=== PATIENT | female | born 1935 | race Asian ===

== ENCOUNTER 2016-09-11 12:34 | Inpatient (IN) | payer OTHER ==
[~2016-09-11] VITALS: Ht 147.3 cm; Wt 63.0 kg
--- NOTE | 2016-09-11 12:34 | NUR ---
Patient [facility], triaged by RN and evaluated by Dr. Cho. Waiting for an available bed.
[2016-09-11 12:40] VITALS: BP 145/56
[2016-09-11] MEDS ORDERED: NACL 0.9% 1,000 ML IV SCH (12:42)
[2016-09-11] MEDS ORDERED: ONDANSETRON 4 MG/2 ML VIAL IVP ONE (12:45)
--- NOTE | 2016-09-11 12:46 | NUR ---
Patient transferred to bed 5. RN evaluating patient at bedside.
--- NOTE | 2016-09-11 12:50 | NUR ---
81 YO FEMALE BIB EMS FROM HOME FOR G TUBE MALFUNCTION IT WON'T FLUSH. HX OF G TUBE IN PLACE, OSTEOPOROSIS, STIFFNESS D/T IMMOBILITY,HTN. GRANDSON DENIES PT HAS N/V/D; SKIN IS PINK/WARM/DRY; PT ACT NEUROLOGICALLY BASELINE. LUNGS CLEAR BL; HR EVEN AND REGULAR; GRANDSON DENIES PT HAS ANY FEVER, CP, SOB, OR COUGH AT THIS TIME; PAIN OF 0/10 AT THIS TIME; VSS; PATIENT POSITIONED FOR COMFORT; HOB ELEVATED; BEDRAILS UP X2; BED DOWN. ER MD MADE AWARE OF PT STATUS.
[2016-09-11 13:01] LABS: BASOPHILS # (AUTO) 0.2 K/uL (0.00-0.22); BASOPHILS % (AUTO) 2.2 % (0.0-2.0); EOSINOPHILS # (AUTO) 0.1 K/uL (0-0.4); EOSINOPHILS % (AUTO) 1.2 % (0.0-4.0); HEMATOCRIT 33.3 % (36-48); HEMOGLOBIN 11.1 g/dL (12.0-16.0); LYMPHOCYTES # (AUTO) 2.2 K/uL (2.5-16.5); LYMPHOCYTES % (AUTO) 23.6 % (20.5-51.1); MEAN CORPUSCULAR HEMOGLOBIN 30 pg (27-31); MEAN CORPUSCULAR HGB CONC 33 g/dL (33-37); MEAN CORPUSCULAR VOLUME 91 fL (80-94); MONOCYTES # (AUTO) 0.6 K/uL (0.8-1.0); MONOCYTES % (AUTO) 6.8 % (1.7-9.3); NEUTROPHILS # (AUTO) 6.1 K/uL (1.8-7.7); NEUTROPHILS % (AUTO) 66.2 % (42.2-75.2); PLATELET COUNT (AUTO) 310 K/uL (140-450); RED BLOOD CELL COUNT(AUTO) 3.68 MIL/uL (4.20-5.40); RED CELL DISTRIBUTION WIDTH 12.6 % (11.6-13.7); WHITE BLOOD COUNT (AUTO) 9.2 K/uL (4.8-10.8)
[2016-09-11 13:17] LABS: ANION GAP 12.1 (8-16); CALCIUM 8.3 mg/dL (8.5-10.1); CARBON DIOXIDE 27.5 mmol/L (21-32); CHLORIDE 101 mmol/L (98-107); CREATININE 0.6 mg/dL (0.6-1.3); GLUCOSE 103 mg/dL (74-106); POTASSIUM 4.6 mmol/L (3.5-5.1); SODIUM SERUM 136 mmol/L (136-145); UREA NITROGEN, BLOOD 16 mg/dL (7-18)
[2016-09-11 13:23] LABS: ALANINE AMINOTRANSFERASE 13 U/L (14-59); ALKALINE PHOSPHATASE 85 U/L (46-116); AMYLASE 43 U/L (25-115); ASPARTATE AMINOTRANSFERASE 11 U/L (15-37); LIPASE 194 U/L (73-393); TOTAL BILIRUBIN 0.4 mg/dL (0.0-1.0); TOTAL PROTEIN, SERUM 7.3 g/dL (6.4-8.2)
[2016-09-11] MEDS ORDERED: LEVE1000 GT (13:28)
[2016-09-11] MEDS ORDERED: OSC500 GT (13:28)
[2016-09-11] MEDS ORDERED: ESOM20EC GT (13:28)
[2016-09-11] MEDS ORDERED: [UNRECOGNIZED DRUG - CODE] NS (13:28)
[2016-09-11] MEDS ORDERED: CALC-1380 GT (13:28)
[2016-09-11] MEDS ORDERED: LACT10SO11 GT (13:28)
[2016-09-11] MEDS ORDERED: ROBDM GT (13:28)
[2016-09-11] MEDS ORDERED: MONT10TA35 GT (13:28)
[2016-09-11] MEDS ORDERED: COLL30OI TP (13:28)
[2016-09-11] MEDS ORDERED: [UNRECOGNIZED DRUG - CODE] GT (13:28)
[2016-09-11] MEDS ORDERED: GAROS OP (13:28)
[2016-09-11] MEDS ORDERED: SIMV20TA1 GT (13:28)
[2016-09-11] MEDS ORDERED: [UNRECOGNIZED DRUG - CODE] GT (13:28)
[2016-09-11] MEDS ORDERED: ALEN35TA30 GT (13:28)
[2016-09-11] MEDS ORDERED: LISI2.5T12 GT (13:28)
[2016-09-11] MEDS ORDERED: SYN.05 GT (13:28)
[2016-09-11] MEDS ORDERED: OMEP20TC5 GT (13:28)
--- NOTE | 2016-09-11 13:44 | NUR ---
Patient appears to be resting comfortably in bed.NADR AT THIS TIME 151/62, MD AWARE. Respirations even and unlabored.WILL CONTINUE TO MONITOR.
--- NOTE | 2016-09-11 13:45 | NUR ---
X RAY AT BEDSIDE
--- NOTE | 2016-09-11 14:34 | NUR ---
Magy kowalski in ED - 09/11/16 at 1434 by MED1 Patient appears to be resting comfortably in bed. Vital Signs within normal limits. Respirations even and unlabored.
--- NOTE | 2016-09-11 14:34 | NUR ---
Patient appears to be resting comfortably in bed. BP 162/75, MD AWARE.. Respirations even and unlabored.
[2016-09-11] MEDS ORDERED: HYDROcodone/APAP 7.5/325 MG 1 TAB PO PRN (14:35)
[2016-09-11] MEDS ORDERED: ONDANSETRON 4 MG/2 ML VIAL IM/IVP PRN (14:35)
[2016-09-11] MEDS ORDERED: DOCUSATE SODIUM 100 MG GELCAP PO PRN (14:35)
[2016-09-11] MEDS ORDERED: MORPHINE SULFATE 2 MG/ML SYR IVP PRN (14:35)
[2016-09-11] MEDS ORDERED: ACETAMINOPHEN 325 MG TAB PO PRN (14:35)
--- NOTE | 2016-09-11 15:09 | NUR ---
Patient will be admitted to care of DR PADILLA. Admited to TELE. Will go to [id number]. Belongings list completed. Report to SURESH WOODRUFF.
--- NOTE | 2016-09-11 15:10 | NUR ---
RECEIVED REPORT FROM THE REGISTRATION SPECIALIST. WILL GET ROOM READY.
--- NOTE | 2016-09-11 15:20 | NUR ---
PT ARRIVED ON THE UNIT WITH 2 ER NURSES. PT HAS HER EYES CLOSED. CONTRACTURE IN BUE. NONE IN THE BLE. PT IS APHASIC. PER GRANDSON, SHE OPENS HER EYES ONCE IN A WHILE BUT DOESN'T SEEM TO UNDERSTAND OR ACKNOWLEDGE. PT IS BEDBOUND.SKIN IS INTACT, EXCEPT FOR THE G-TUBE REMOVAL. OPEN STOMA COVERED IN DRESSING. IV ON THE R HAND 22G SL. ADMINISTERED TELE MONITOR. MRSA SCREENING DONE. SHE IS NPO EXCEPT MEDS. WE WILL KEEP HER NPO AND NEW GTUBE PLACEMENT TOMORROW. NO SIGNS OF DISTRESS. VANNESSA GAVE DETAILED MED HX. V/S WITHIN NORMAL RANGE. WILL CONTINUE THE ADMISSION PROCESS. Addendum: 09/11/16 at 1837 by Cathy Jones RN SMALL WHITE SPOT ON HER SACRAL AREA. NOT OPEN. WILL PUT IN TURN PT Q 2HRS.
[2016-09-11 15:25] LABS: PROTHROMBIN TIME 10.4 secs (10.8-13.4)
[2016-09-11 15:34] LABS: CHOL/HDL RATIO 2.3 (1-4.5); FREE T4 (FREE THYROXINE) 1.18 ng/dL (0.76-1.46); MAGNESIUM 2.3 mg/dL (1.8-2.4); THYROID STIMULATING HORMONE 0.52 uIU/mL (0.34-3.74)
[2016-09-11 15:36] LABS: APPEARANCE,URINE CLEAR (CLEAR); BILIRUBIN,URINE NEGATIVE (NEGATIVE); BLOOD, URINE TRACE-L (NEGATIVE); COLOR,URINE YELLOW (YELLOW); LEUKOCYTE ESTERASE ,URINE NEGATIVE (NEGATIVE); NITRITE, URINE NEGATIVE (NEGATIVE); PROTEIN,URINE NEGATIVE (NEGATIVE); UGLUCOSE NEGATIVE (NEGATIVE); UROBILINOGEN,URINE 0.2 EU/dL (0.2 - 1)
[2016-09-11 15:42] LABS: BACTERIA,URINE RARE /HPF (None Seen); WBC,URINE 0-3 /HPF (0-5)
[2016-09-11 15:56] VITALS: BP 151/72
[2016-09-11 16:27] LABS: CHOL/HDL RATIO 2.4 (1-4.5)
--- NOTE | 2016-09-11 16:53 | NUR ---
PT RESTING COMFORTABLY. GRANDSON GONE. WILL CONTINUE TO MONITOR PT. DR BROWN STOPPED. R/T WAS HERE, GOT AN EKG. PT TOLERATED WELL.
[2016-09-11] MEDS ORDERED: LEVOFLOXACIN 500 MG/D5W PREMIX 100 ML IV SCH (18:00)
--- NOTE | 2016-09-11 18:00 | NUR ---
DISCUSSED W/ PT'S GRANDSON, ONLY FAMILY HERE RE NG TUBE. HE WOULD LIKE TO WAIT FOR THE G TUBE PLACEMENT TOMORROW. HE WILL DISCUSS IT AGAIN WITH HIS MOM WHEN SHE COMES TONIGHT BUT WOULD LIKE HOLD OFF. WILL ENDORSE ORDER TO THE SADDLE TREE STITCHER IF THE FAMILY CHANGES MIND.
[2016-09-11] MEDS: NACL 0.9% 1,000 ML IV SCH (18:16)
--- NOTE | 2016-09-11 18:34 | NUR ---
ADMINISTERED IV NS AT 90ML/HR, STARTED THE LEVAQUIN. NO CLEOCIN PREMIX OR THE VIAL. CALLED AIRCRAFT MOTOR MECHANIC. HE WILL BRING ONE SO WE CAN MIX IT AND GIVE. WILL AWAIT FOR ARRIVAL.
[2016-09-11] MEDS ORDERED: CLINDAMYCIN 600 MG/4 ML VIAL ONE (18:44)
[2016-09-11] MEDS ORDERED: DEXTROSE 50% 50 ML SYR IVP PRN (18:45)
[2016-09-11] MEDS ORDERED: INSULIN LISPRO SLIDING SCALE 100 UNITS/ML VIAL SUBQ PRN (18:50)
[2016-09-11] MEDS: DOCUSATE SODIUM 100 MG GELCAP PO SCH (19:00)
[2016-09-11] MEDS ORDERED: CALCIUM CARB/VIT-D 500 MG/200 IU 1 TAB PO SCH (19:00)
[2016-09-11] MEDS ORDERED: ALENDRONATE 10 MG TAB PO SCH (19:00)
[2016-09-11] MEDS: SIMVASTATIN 20 MG TAB PO SCH ×2 (19:00→20:29)
[2016-09-11] MEDS: LACTOBACILLUS RHAMNOSUS GG 1 EACH CAP PO SCH (19:00)
[2016-09-11] MEDS: MONTELUKAST SODIUM 10 MG TAB PO SCH (19:00)
[2016-09-11] MEDS: LISINOPRIL 5 MG TAB PO SCH (19:00)
[2016-09-11] MEDS: FLUTICASONE NASAL 50 MCG/ACTUATION 16 GM BTL NS SCH (19:00)
[2016-09-11] MEDS: LEVOTHYROXINE 0.05 MG TAB PO SCH (19:00)
[2016-09-11] MEDS: CLINDAMYCIN 600 MG in DEXTROSE 5% 50 ML IV SCH (19:18)
--- NOTE | 2016-09-11 19:20 | NUR ---
ENDORSED PT TO THE STORAGE BATTERY INSPECTOR AND TESTER NURSE FOR CONTINUITY OF CARE. PT IS RESTING WITH FAMILY AT BEDSIDE. PT IS IN STABLE CONDITION. FINISHED SCOTT YAO. PT TOLERATING WELL.
--- NOTE | 2016-09-11 19:25 | NUR ---
RECEIVED REPORTS FROM DAY RN. PATIENT RESTING IN BED AND FAMILY MEMBERS AT BEDSIDE. PATIENT APHASIC AND DID NOT OPEN HER EYES WHEN TAPPING ON HER SHOULDERS. NO S/S OF ACUTE DISTRESS NOTED. IV PATENT AND INTACT, INFUSING CLEOCIN AT 100ML/HR. DRESSING ON G-TUBE SITE CLEAN AND DRY. CARE PLAN DISCUSSED WITH PATIENT'S DAUGHTER AND GRANDSON, VERBALIZED UNDERSTANDING. BED ALARM ON, AND FALL PRECAUTION MAINTAINED PER HOSPITAL POLICY, CALL LIGHT WITHIN REACH, SAFETY MEASURE ENSURED, WILL CONTINUE TO MONITOR.
[2016-09-11 20:00] VITALS: BP 163/72
[2016-09-11] MEDS: BLOOD GLUCOSE MONITORING 1 DEV DEV FS SCH (20:25)
--- NOTE | 2016-09-11 20:30 | NUR ---
ZOCOR NON-ADMINISTER DUE TO G-TUBE MALFUNCTION. PER DAY SHIFT RN, G-TUBE WAS REMOVED IN ER AND PATIENT'S DAUGHTER AND GRANDSON DID NOT WANT PO MEDICATIONS TO BE ADMINISTERED AT THIS TIME. PATIENT FAMILY MEMBERS ARE OKAY WITH ADMINISTERING IV MEDICATIONS.
[2016-09-12] VITALS: BP 149/58
[2016-09-12] MEDS ORDERED: CLINDAMYCIN 600 MG/4 ML VIAL ONE ×2 (00:05→05:16)
[2016-09-12] MEDS: CLINDAMYCIN 600 MG in DEXTROSE 5% 50 ML IV SCH ×3 (00:06→12:10)
--- NOTE | 2016-09-12 00:12 | NUR ---
CLEOCIN STARTED, PATIENT TOLERATED WELL. REPOSITIONED PATIENT. PATIENT'S DAUGHTER STATED FLAG CAR DRIVER REPOSITIONED PATIENT AROUND 1030. DRESSING ON G-TUBE CLEAN AND INTACT. EDUCATED PATIENT'S DAUGHTER ABOUT CLEOCIN, VERBALIZED UNDERSTANDING. SAFETY MEASURE ENSURED, WILL CONTINUE TO MONITOR.
[2016-09-12] MEDS: NACL 0.9% 1,000 ML IV SCH ×3 (01:41→23:55)
--- NOTE | 2016-09-12 02:13 | NUR ---
PATIENT RESPIRATION EVEN AND UNLABORED, NO S/S OF ACUTE DISTRESS NOTED, POWER PLANT SUPERVISOR WAS IN THE ROOM REPOSITIONED THE PATIENT. WILL CONTINUE TO MONITOR
[2016-09-12 04:00] VITALS: BP 115/52
--- NOTE | 2016-09-12 04:15 | NUR ---
HELPED ENVIRONMENTAL RESEARCH SCIENTIST REPOSITIONED THE PATIENT, NO S/S OF ACUTE DISTRESS NOTED, CALL LIGHT WITHIN REACH, WILL CONTINUE TO MONITOR
[2016-09-12 05:50] LABS: BASOPHILS # (AUTO) 0.1 K/uL (0.00-0.22); BASOPHILS % (AUTO) 1.4 % (0.0-2.0); EOSINOPHILS # (AUTO) 0.1 K/uL (0-0.4); EOSINOPHILS % (AUTO) 1.9 % (0.0-4.0); HEMATOCRIT 31.3 % (36-48); HEMOGLOBIN 10.2 g/dL (12.0-16.0); LYMPHOCYTES # (AUTO) 1.7 K/uL (2.5-16.5); LYMPHOCYTES % (AUTO) 29.9 % (20.5-51.1); MEAN CORPUSCULAR HEMOGLOBIN 30 pg (27-31); MEAN CORPUSCULAR HGB CONC 33 g/dL (33-37); MEAN CORPUSCULAR VOLUME 93 fL (80-94); MONOCYTES # (AUTO) 0.4 K/uL (0.8-1.0); MONOCYTES % (AUTO) 7.2 % (1.7-9.3); NEUTROPHILS # (AUTO) 3.3 K/uL (1.8-7.7); NEUTROPHILS % (AUTO) 59.6 % (42.2-75.2); PLATELET COUNT (AUTO) 268 K/uL (140-450); RED BLOOD CELL COUNT(AUTO) 3.35 MIL/uL (4.20-5.40); RED CELL DISTRIBUTION WIDTH 12.4 % (11.6-13.7); WHITE BLOOD COUNT (AUTO) 5.6 K/uL (4.8-10.8)
[2016-09-12] MEDS: LEVOTHYROXINE 0.05 MG TAB PO SCH (06:20)
--- NOTE | 2016-09-12 06:21 | NUR ---
SYNTHROID NOT ADMINISTER DUE TO G-TUBE MALFUNCTION. PER DAY SHIFT RN, G-TUBE WAS REMOVED IN ER AND PATIENT'S DAUGHTER AND GRANDSON DID NOT WANT PO MEDICATIONS TO BE ADMINISTERED AT THIS TIME.
[2016-09-12] MEDS: BLOOD GLUCOSE MONITORING 1 DEV DEV FS SCH ×4 (06:52→21:03)
--- NOTE | 2016-09-12 07:15 | NUR ---
ENDORSED PLAN OF CARE TO DAY RN, PATIENT IS IN STABLE CONDITION.
--- NOTE | 2016-09-12 07:20 | NUR ---
RECEIVED REPORT FROM QUALITY ASSURANCE REPRESENTATIVE NURSE AT BEDSIDE. DAUGHTER AT BEDSIDE. PT IS APHASIC, AND AWAKE AT THIS TIME. PT HAS IV ON R HAND 22 G RUNNING NS@90. INTRODUCED MYSELF AND UPDATED THE BOARD. CALL LIGHT WITHIN REACH. WILL CONTINUE TO MONITOR.
[2016-09-12 08:00] VITALS: BP 160/60
--- NOTE | 2016-09-12 08:57 | NUR ---
FAXED INITIAL REVIEW TO [facility] [phone] PHONE CASSANDRA [phone]
[2016-09-12] MEDS: DOCUSATE SODIUM 100 MG GELCAP PO SCH (09:00)
[2016-09-12] MEDS: MONTELUKAST SODIUM 10 MG TAB PO SCH (09:00)
[2016-09-12] MEDS: LACTOBACILLUS RHAMNOSUS GG 1 EACH CAP PO SCH (09:00)
[2016-09-12] MEDS: CALCIUM CARBONATE 500 MG TAB PO SCH (09:00)
[2016-09-12] MEDS: LISINOPRIL 5 MG TAB PO SCH (09:00)
--- NOTE | 2016-09-12 09:00 | NUR ---
HELD ALL MEDS EXCEPT IV MED DUE TO ABSENCE OF G TUBE.
[2016-09-12] MEDS: PANTOPRAZOLE 40 MG INJ VIAL IVP SCH (09:26)
[2016-09-12] MEDS: FLUTICASONE NASAL 50 MCG/ACTUATION 16 GM BTL NS SCH (09:27)
--- NOTE | 2016-09-12 09:55 | NUR ---
PATIENT HAS BEEN SCREENED AND CATEGORIZED HIGH NUTRITION RISK. PATIENT WILL BE SEEN WITHIN 1-2 DAYS OF ADMISSION. 09/12/16-09/13/[address]
--- NOTE | 2016-09-12 10:00 | NUR ---
TALKED TO PHARM REGARDING PT'S ELEVATED BP OF 160/66, AND PT'S UNABLE TO TAKE BP MEDS DUE TO REMOVAL OF G-TUBE.
[2016-09-12 10:24] LABS: HEMOGLOBIN A1C 5.6 % (4.8-5.6); T4 (THYROXINE) 7.7 ug/dL (4.5-12.0)
[2016-09-12] MEDS ORDERED: hydrALAZINE 20 MG/ML VIAL IVP PRN (11:25)
--- NOTE | 2016-09-12 11:45 | NUR ---
TALKED TO DR. VÁZQUEZ REGARDING PT'S ELEVATED BP 184/61. DR WILL SEE PT.
[2016-09-12 12:00] VITALS: BP 184/61
--- NOTE | 2016-09-12 13:00 | NUR ---
CLEANED AND CHANGED AND REPOSITIONED PT. PT TOLERATED WELL. CALL LIGHT WITHIN REACH. WILL CONTINUE TO MONITOR.
--- NOTE | 2016-09-12 14:00 | NUR ---
G-TUBE INSERTED BY DR. Diamond LEÓN. PT TOLERATED WELL.
--- NOTE | 2016-09-12 14:55 | NUR ---
09/12/16 RD INITIAL ASSESSMENT COMPLETED PLEASE REFER TO NUTRITION ASSESSMENT UNDER CARE ACTIVITY FOR ESTIMATED NUTRITIONAL NEEDS. 1. WHEN MEDICALLY FEASIBLE, CONSIDER INITIATING EN SUPPORT - DIABETISOURCE TO START AT 30 MLS/HR AND ADVANCE 10 MLS Q8H TO GOAL RATE OF 55 MLS/HR (THIS WILL MEET 1584 KCAL, 81G OF PROTEIN, AND 1080 ML OF FREE WATER - MEETING 100% KCAL RRR224% PROTEIN ESTIMATED NEEDS) 2. RD TO FOLLOW-UP 2-3 DAYS; HIGH RISK JUAN ALBERTO DE [address] RD
--- NOTE | 2016-09-12 15:00 | NUR ---
PT IS RESTING COMFORTABLY IN BED. NO DISTRESS NOTED. CALL LIGHT WITHIN REACH. WILL CONTINUE TO MONITOR.
[2016-09-12 16:00] VITALS: BP 159/69
--- NOTE | 2016-09-12 17:30 | NUR ---
PT'S IV INFILTRATED. WILL PUT IN NEW IV. OLD IV REMOVED, CANNULA INTACT.
[2016-09-12] MEDS ORDERED: CLINDAMYCIN 150 MG CAP PO SCH (18:23)
--- NOTE | 2016-09-12 18:30 | NUR ---
IV INSERTION UNSUCCESSFUL. SPOKE TO . DR MEJÍA PUT ORDER FOR ANTIBIOTICS THRU G-TUBE.
--- NOTE | 2016-09-12 18:30 | NUR ---
ATTEMPTED CALLING THE GRANDSON TO INQUIRE TYPE OF G-TUBE FEEDING PT WAS ON. CALL NOT ANSWERED AT THIS TIME.
[2016-09-12] MEDS ORDERED: LEVOFLOXACIN 500 MG TAB PO SCH (19:00)
--- NOTE | 2016-09-12 19:37 | NUR ---
ENDORSED CARE OF PT TO FIELD AGRONOMIST NURSE AT BEDSIDE. PT IN STABLE CONDITION.
--- NOTE | 2016-09-12 19:38 | NUR ---
RECEIVED REPORT FROM AM NURSE. PT SEEN ON BED AWAKE, APHASIC. WITH GRANDSON AT BEDSIDE. WITH A G-TUBE IN PLACE, PATENT AND INTACT. DISCUSSED PLAN OF CARE WITH THE GRANDSON, VERBALIZED UNDERSTANDING. WILL CONTINUE TO MONITOR. CALL LIGHT WITHIN REACH. SAFETY CHECKS IN PLACE.
[2016-09-12 20:00] VITALS: BP 149/68
[2016-09-12] MEDS: SIMVASTATIN 20 MG TAB PO SCH (21:02)
[2016-09-13] VITALS: BP 141/55
--- NOTE | 2016-09-13 00:30 | NUR ---
VITAL SIGNS TAKEN, STABLE. DUE MEDS GIVEN THROUGH G TUBE. NO S/S OF DISTRESS. FLACC - 0. WILL CONTINUE TO MONITOR. CALL LIGHT WITHIN REACH.
[2016-09-13] MEDS: CLINDAMYCIN 150 MG CAP PO SCH ×4 (00:32→17:22)
--- NOTE | 2016-09-13 01:39 | NUR ---
INSERTED A NEW IV AT LEFT HAND 20 G AND RESTARTED IV FLUIDS. INFORMED MD AND SAID WILL CONTINUE WITH MEDICATION THROUGH G-TUBE.
[2016-09-13] MEDS: NACL 0.9% 1,000 ML IV SCH ×2 (01:48→06:12)
--- NOTE | 2016-09-13 02:38 | NUR ---
MADE ROUNDS, PT SEEN ON BED ASLEEP. NO S/S OF DISTRESS. WILL CONTINUE TO MONITOR. CALL LIGHT WITHIN REACH.
[2016-09-13 04:00] VITALS: BP 128/56
--- NOTE | 2016-09-13 04:30 | NUR ---
VITAL SIGNS STABLE. NO S/S OF DISTRESS. FLACC SCORE - 0. WILL CONTINUE TO MONITOR. CALL LIGHT WITHIN REACH. SAFETY CHECKS IN PLACE.
[2016-09-13] MEDS: LEVOTHYROXINE 0.05 MG TAB PO SCH (05:48)
[2016-09-13 05:50] LABS: BASOPHILS # (AUTO) 0.1 K/uL (0.00-0.22); BASOPHILS % (AUTO) 0.8 % (0.0-2.0); EOSINOPHILS # (AUTO) 0.1 K/uL (0-0.4); EOSINOPHILS % (AUTO) 1.4 % (0.0-4.0); HEMATOCRIT 33.1 % (36-48); HEMOGLOBIN 10.8 g/dL (12.0-16.0); LYMPHOCYTES # (AUTO) 1.5 K/uL (2.5-16.5); LYMPHOCYTES % (AUTO) 19.7 % (20.5-51.1); MEAN CORPUSCULAR HEMOGLOBIN 30 pg (27-31); MEAN CORPUSCULAR HGB CONC 33 g/dL (33-37); MEAN CORPUSCULAR VOLUME 92 fL (80-94); MONOCYTES # (AUTO) 0.6 K/uL (0.8-1.0); MONOCYTES % (AUTO) 8.5 % (1.7-9.3); NEUTROPHILS # (AUTO) 5.3 K/uL (1.8-7.7); NEUTROPHILS % (AUTO) 69.6 % (42.2-75.2); PLATELET COUNT (AUTO) 310 K/uL (140-450); RED BLOOD CELL COUNT(AUTO) 3.58 MIL/uL (4.20-5.40); RED CELL DISTRIBUTION WIDTH 12.5 % (11.6-13.7); WHITE BLOOD COUNT (AUTO) 7.6 K/uL (4.8-10.8)
[2016-09-13 06:05] LABS: ANION GAP 12.2 (8-16); CALCIUM 7.7 mg/dL (8.5-10.1); CARBON DIOXIDE 22.9 mmol/L (21-32); CHLORIDE 106 mmol/L (98-107); CREATININE 0.7 mg/dL (0.6-1.3); GLUCOSE 130 mg/dL (74-106); POTASSIUM 4.1 mmol/L (3.5-5.1); SODIUM SERUM 137 mmol/L (136-145); UREA NITROGEN, BLOOD 15 mg/dL (7-18)
[2016-09-13] MEDS: BLOOD GLUCOSE MONITORING 1 DEV DEV FS SCH ×3 (06:48→16:58)
--- NOTE | 2016-09-13 07:21 | NUR ---
ENDORSED TO AM SHIFT FOR CONTINUITY OF CARE. IN STABLE CONDITION.
--- NOTE | 2016-09-13 07:22 | NUR ---
RECEIVED PT FROM TELECOMMUNICATIONS FACILITY EXAMINER NURSE AT BEDSIDE. PT IS A&OX1. PT HAS IV ON L HAND 24 G RUNNING NS@90. PT HAS G-TUBE IN PLACE. NO DISTRESS NOTED. CALL LIGHT WITHIN REACH. WILL CONTINUE TO MONITOR.
[2016-09-13 08:00] VITALS: BP 153/69
[2016-09-13] MEDS: PANTOPRAZOLE 40 MG INJ VIAL IVP SCH (08:26)
[2016-09-13] MEDS: FLUTICASONE NASAL 50 MCG/ACTUATION 16 GM BTL NS SCH (08:26)
[2016-09-13] MEDS: MONTELUKAST SODIUM 10 MG TAB PO SCH (08:27)
[2016-09-13] MEDS: CALCIUM CARBONATE 500 MG TAB PO SCH (08:27)
[2016-09-13] MEDS: LACTOBACILLUS RHAMNOSUS GG 1 EACH CAP PO SCH (08:28)
[2016-09-13] MEDS: LISINOPRIL 5 MG TAB PO SCH (08:28)
[2016-09-13] MEDS ORDERED: DOCUSATE 100 MG/10 ML UDC PO PRN (08:48)
[2016-09-13] MEDS ORDERED: DOCUSATE 100 MG/10 ML UDC GT SCH (09:00)
--- NOTE | 2016-09-13 09:00 | NUR ---
ADMINISTERED MORNING MEDS THRU G-TUBE. PT TOLERATED WELL. CALL LIGHT WITHIN REACH. WILL CONTINUE TO MONITOR.
--- NOTE | 2016-09-13 09:32 | NUR ---
CALLED [facility] AND SPOKE WITH TREVIN. SHE CONFIRMED FAX [phone]. FAXED CONCURRENT REVIEW . PHONE [phone] BILLY [phone] TREVIN SAID FOR [facility] TRANSPORT HOME USE [facility] PHONE [phone] AUTH [id number].
--- NOTE | 2016-09-13 10:20 | NUR ---
STARTED G-TUBE FEEDING.
[2016-09-13 12:00] VITALS: BP 159/58
--- NOTE | 2016-09-13 12:05 | NUR ---
DISCUSSED DC PLAN WITH VANNESSA AT BEDSIDE. NO DISTRESS NOTED. CALL LIGHT WITHIN REACH. WILL CONTINUE TO MONITOR.
[2016-09-13] MEDS ORDERED: CLIN150C1 PO (13:47)
[2016-09-13] MEDS ORDERED: LEVO750T2 PO ×2 (13:47→16:41)
--- NOTE | 2016-09-13 14:00 | NUR ---
PT IS RESTING COMFORTABLY IN BED. RESIDUAL 25 ML. NO DISTRESS NOTED. CALL LIGHT WITHIN REACH. WILL CONTINUE TO MONITOR.
--- NOTE | 2016-09-13 14:05 | NUR ---
CALLED FOR [facility] TRANSPORT WITH [facility]. SPOKE WITH RUSLAN. PICKUP TIME WILL BE 6:30P.M. CONF. #[id number]. SURESH GUERRACANDLEMAKER NURSE INFORMED. [facility], .. AUTH NUMBER GIVEN [id number].
[2016-09-13 15:20] VITALS: BP 159/58
[2016-09-13 16:00] VITALS: BP 134/66
--- NOTE | 2016-09-13 16:30 | NUR ---
PT'S RESIDUAL IS 20ML. NO DISTRESS NOTED. CALL LIGHT WITHIN REACH. WILL CONTINUE TO MONITOR.
[2016-09-13] MEDS ORDERED: CLIN300C2 PO (16:41)
[2016-09-13] MEDS ORDERED: LACT1.4C PO (16:50)
[2016-09-13] MEDS ORDERED: LEVOFLOXACIN 500 MG TAB PO SCH (17:00)
--- NOTE | 2016-09-13 17:30 | NUR ---
PT'S GRANDSON SIGNED ALL APPROPRIATE DC PAPERWORK AND VERBALIZED UNDERSTANDING.
--- NOTE | 2016-09-13 19:20 | NUR ---
ACCOMPANIED BY VANNESSA, PT TRANSPORTED BY [facility] TO HOME. PT IN STABLE CONDITION. TELE BOX REMOVED, IV REMOVED CANNULA INTACT. ALL ID BANDS CUT OFF.
== END 2016-09-13 19:20 | disposition home or self-care (01) | DRG 252 ==
LOC: MED 12:35 → MTU 14:40
PROVIDERS: ADMIT Student in an Organized Health Care Education/Training Program; ATTEND Student in an Organized Health Care Education/Training Program
PROC: 0D20XUZ Change Feeding Device in Upper Intestinal Tract, External Approach (ICD-10-PCS; principal; 2016-09-12)
DX: K94.22 Gastrostomy infection (principal); G93.41 Metabolic encephalopathy; E44.0 Moderate protein-calorie malnutrition; E11.65 Type 2 diabetes mellitus with hyperglycemia; G30.9 Alzheimer's disease, unspecified; F02.81 Dementia in other diseases classified elsewhere, unspecified severity, with behavioral disturbance; J44.9 Chronic obstructive pulmonary disease, unspecified; R13.10 Dysphagia, unspecified; R47.01 Aphasia; L03.311 Cellulitis of abdominal wall; I10 Essential (primary) hypertension; E03.9 Hypothyroidism, unspecified; D64.9 Anemia, unspecified; F32.9 Major depressive disorder, single episode, unspecified; M81.0 Age-related osteoporosis without current pathological fracture; E78.00 Pure hypercholesterolemia, unspecified; Z79.899 Other long term (current) drug therapy; I25.2 Old myocardial infarction; Z86.73 Personal history of transient ischemic attack (TIA), and cerebral infarction without residual deficits; Z85.89 Personal history of malignant neoplasm of other organs and systems; Z74.01 Bed confinement status; Z68.29 Body mass index [BMI] 29.0-29.9, adult; Y83.3 Surgical operation with formation of external stoma as the cause of abnormal reaction of the patient, or of later complication, without mention of misadventure at the time of the procedure; Y92.89 Other specified places as the place of occurrence of the external cause
CPT/HCPCS: 36415; 71010; 80048; 80053; 81001; 82150; 82948; 83036; 83690; 83735; 83880; 84100; 84436; 84439; 84443; 84479; 85025; 85610; 85730; 87070; 87075; 87081; 87186; 87205; 93005; 96374; 99285; C1758; C9113; J0360; J1815; J1956; J2405; J3490; J7030; J7060; Q0092

== ENCOUNTER 2017-09-20 21:17 | Emergency (ER) | payer OTHER ==
[~2017-09-20] VITALS: Ht 147.3 cm; Wt 68.0 kg
[~2017-09-20 21:17] MED LIST: ALEN35TA30 GT; CALC-53 GT; CLIN150C1 PO; CLIN300C2 PO; COLL30OI TP; ESOM20EC GT; GAROS OP; LACT1.4C PO; LACT10SO11 GT; LEVE1000 GT; LEVO750T2 PO; LISI2.5T12 GT; MONT10TA35 GT; OMEP20TA56 GT; ROBDM GT; SIMV20TA1 GT; SYN.05 GT; [UNRECOGNIZED DRUG - CODE] GT; [UNRECOGNIZED DRUG - CODE] GT; [UNRECOGNIZED DRUG - CODE] NS
--- NOTE | 2017-09-20 21:40 | NUR ---
PATIENT TO ER BED 7.
[2017-09-20 21:44] VITALS: BP 126/32
--- NOTE | 2017-09-20 21:48 | NUR ---
PT BIB VANNESSA FOR G TUBE BEING REMOVED 2 HOURS SUPERVISOR CONCRETE BLOCK PLANT. PT IS NON VERBAL AND CONTRACTED DUE TO PREVIOUS STROKE ACCORDING TO VANNESSA. PT ARRIVES IN HOSPITAL GOWN THAT IS SWEATY. PT IS NOT DIAPHORETIC UPON ARRIVAL AND NON FEBRILE. G TUBE SITE IS BEEFY RED, NO BLEEDING OR D/C NOTED AT THIS TIME. GAUZE APPLIED AT THIS TIME. PMH CVA, SEIZURES, GTUBE, DYSPHAGIA Addendum: 09/20/17 at 2151 by Silver Spring NetworksCECILIO JEWELS HAS MISPLACED GTUBE IN BAG, APPEARS TO BE INTACT.
--- NOTE | 2017-09-20 23:25 | NUR ---
DR KEYES AT BEDSIDE FOR G TUBE PLACEMENT
--- NOTE | 2017-09-20 23:33 | NUR ---
G TUBE PLACED, AWAITNG XRAY TO CONFIRM PLACEMENT .
[2017-09-21 00:12] VITALS: BP 143/45
--- NOTE | 2017-09-21 00:14 | NUR ---
Patient discharged with v/s stable. Written and verbal after care instructions given and explained. Patient alert, oriented and verbalized understanding of instructions. Wheel Chair Assisted with to mcc. All questions addressed prior to discharge. ID band removed. Patient advised to follow up with PMD.NO Rx given. Patient educated on indication of medication including possible reaction and side effects. Opportunity to ask questions provided and answered.
== END 2017-09-21 00:14 | disposition home or self-care (01) ==
LOC: MED 21:17
DX: K94.23 Gastrostomy malfunction (principal); J44.9 Chronic obstructive pulmonary disease, unspecified; E11.9 Type 2 diabetes mellitus without complications; F03.90 Unspecified dementia, unspecified severity, without behavioral disturbance, psychotic disturbance, mood disturbance, and anxiety; K21.9 Gastro-esophageal reflux disease without esophagitis; I10 Essential (primary) hypertension; Z85.9 Personal history of malignant neoplasm, unspecified; Z86.73 Personal history of transient ischemic attack (TIA), and cerebral infarction without residual deficits; Z79.899 Other long term (current) drug therapy
CPT/HCPCS: 43760; 74241; 99284

== ENCOUNTER 2018-04-18 20:56 | Emergency (ER) | payer OTHER ==
[~2018-04-18] VITALS: Ht 157.5 cm; Wt 61.2 kg
[2018-04-18 21:10] VITALS: BP 195/89
--- NOTE | 2018-04-18 21:13 | NUR ---
PT WHEEL CHAIR ASSISTED TO LOBBY WITH VSS. ACCOMPANIED BY FAMILY.
--- NOTE | 2018-04-18 21:49 | NUR ---
PT BROUGHT TO BED 5 VIA WHEELCHAIR
--- NOTE | 2018-04-18 22:12 | NUR ---
83/F BIB GRANDSON FROM HOME, C/O CONSTIPATION X10 DAYS AND NONPRODUCTIVE COUGH X1 MONTH. DENIES FEVER. PT WAS SEEN BY PCP, WAS INSTRUCTED TO GO TO ER FOR CXR. 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 LUNG SOUNDS RHONCHI BL. BS ACTIVE X4, ABD SOFT ROUND NONTENDER, GTUBE NOTED. CONNECTED TO MONITOR. ER MD WITH SCRIBE AT BEDSIDE. HX CVA (2014), GTUBE, HTN
--- NOTE | 2018-04-18 22:25 | NUR ---
PT TAKEN TO CT
[2018-04-18 23:50] LABS: BASOPHILS % (AUTO) 0.5 % (0.0-2.0); EOSINOPHILS # (AUTO) 0.1 K/uL (0-0.4); EOSINOPHILS % (AUTO) 1.6 % (0.0-4.0); HEMATOCRIT 35.6 % (36-48); HEMOGLOBIN 11.7 g/dL (12.0-16.0); LYMPHOCYTES # (AUTO) 1.6 K/uL (2.5-16.5); MEAN CORPUSCULAR HEMOGLOBIN 31 pg (27-31); MEAN CORPUSCULAR HGB CONC 33 g/dL (33-37); MEAN CORPUSCULAR VOLUME 93.7 fL (80-94); MONOCYTES # (AUTO) 0.6 K/uL (0.8-1.0); NEUTROPHILS # (AUTO) 4.4 K/uL (1.8-7.7); NEUTROPHILS % (AUTO) 64.9 % (42.2-75.2); PLATELET COUNT (AUTO) 288 K/uL (140-450); RED CELL DISTRIBUTION WIDTH 13.8 % (11.6-13.7); WHITE BLOOD COUNT (AUTO) 6.7 K/uL (4.8-10.8)
[2018-04-18 23:58] LABS: ANION GAP 10.8 (8-16); CARBON DIOXIDE 29.3 mmol/L (21-32); CHLORIDE 97 mmol/L (98-107); CREATININE 0.6 mg/dL (0.6-1.3); GLUCOSE 114 mg/dL (74-106); POTASSIUM 4.1 mmol/L (3.5-5.1); SODIUM SERUM 133 mmol/L (136-145); UREA NITROGEN, BLOOD 13 mg/dL (7-18)
[2018-04-19 00:05] LABS: ALBUMIN 3.6 g/dL (3.4-5.0); ASPARTATE AMINOTRANSFERASE 13 U/L (15-37); TOTAL BILIRUBIN 0.3 mg/dL (0.0-1.0)
--- NOTE | 2018-04-19 00:32 | NUR ---
BP ELEVATED, ER MD AWARE, OK FOR DISCHARGE
[2018-04-19 00:33] VITALS: BP 177/57
--- NOTE | 2018-04-19 00:33 | NUR ---
Patient discharged with v/s stable. Written and verbal after care instructions given and explained. Patient alert, oriented and verbalized understanding of instructions. Wheel Chair Assisted with by caregiver. All questions addressed prior to discharge. ID band removed. Patient advised to follow up with PMD. Rx of MIRALAX given. Patient educated on indication of medication including possible reaction and side effects. Opportunity to ask questions provided and answered.
== END 2018-04-19 00:33 | disposition home or self-care (01) ==
LOC: MED 20:56
DX: K59.00 Constipation, unspecified (principal); I25.2 Old myocardial infarction; J44.9 Chronic obstructive pulmonary disease, unspecified; F03.90 Unspecified dementia, unspecified severity, without behavioral disturbance, psychotic disturbance, mood disturbance, and anxiety; K21.9 Gastro-esophageal reflux disease without esophagitis; I10 Essential (primary) hypertension; Z85.9 Personal history of malignant neoplasm, unspecified; Z86.73 Personal history of transient ischemic attack (TIA), and cerebral infarction without residual deficits; Z79.899 Other long term (current) drug therapy
CPT/HCPCS: 36415; 71045; 74176; 76705; 80053; 85025; 99284; Q0092

== ENCOUNTER 2019-02-11 11:31 | Emergency (ER) | payer OTHER ==
[~2019-02-11] VITALS: Ht 157.5 cm; Wt 81.6 kg
[~2019-02-11 11:31] MED LIST changes: +ALEN35TA23 GT; -ALEN35TA30 GT
--- NOTE | 2019-02-11 11:52 | NUR ---
PATIENT WHEELCHAIR ASSISTED BY FAMILY TO BED 8.
[2019-02-11 11:57] VITALS: BP 170/81
[2019-02-11] MEDS ORDERED: FURO-572 PO (12:11)
[2019-02-11] MEDS ORDERED: ROB1 GT (12:11)
[2019-02-11] MEDS ORDERED: VALS160T2 PO (12:11)
--- NOTE | 2019-02-11 13:20 | NUR ---
83 YO F BIB DAUGHTER AND GRANDSON (PRIMARY CAREGIVERS) FROM HOME FOR G-TUBE MALFUNCTION STARTING TODAY. GRANDSON STATES ONE OF THE PORT CAPS BROKE OFF AND THE TUBE IS LEAKING. 20 FR GTUBE NOTED TO BE LEAKING WHITE/YELLOW RESIDUAL INTO PLASTIC BAG FROM HOME. ABD APPEARS LARGE, DISTENDED, NON-PLIABLE. HYPOACTIVE BOWEL SOUNDS + 4. PER GRANDSON, PT IS NON VERBAL AND NON AMBULATORY FROM A CVA THAT HAPPENED "MANY YEARS AGO". PT HAS UPPER EXTREMETY FLEXION CONTRACTURES. EYES OPEN SPONTANEOUSLY. PT GRIMACES AND VOCALIZES IN RESPONSE TO PAIN.
--- NOTE | 2019-02-11 13:30 | NUR ---
PT PLACED ON MONITOR. LYING IN BED WITH HOB SLIGHTLY ELEVATED. GRANDSON SITTING NEARBY. GTUBE DRAINING INTO PLASTIC BAG FROM HOME. FORMULA COLORED RESIDUAL NOTED.
--- NOTE | 2019-02-11 13:38 | NUR ---
DR. MARCUS ABRAHAM AT BEDSIDE.
--- NOTE | 2019-02-11 14:00 | NUR ---
G-TUBE REMOVED AND REPLACED WITH 20 FR G-TUBE BY DR. WEBBER. BALLOON INFLATED WITH 15 ML NS. TOLERATED WELL.
[2019-02-11] MEDS ORDERED: hydrALAZINE 20 MG/ML VIAL IM ONE (14:25)
--- NOTE | 2019-02-11 14:25 | NUR ---
BP CONSISTENTLY HIGH DURING CARE: 214/150, 167/57, 163/123. DR. VELAZQUEZ MADE AWARE. HYDRALAZINE TO BE ORDERED.
--- NOTE | 2019-02-11 14:37 | NUR ---
MEDICATED WITH 10 MG IM HYDRALAZINE FOR HTN. BP: 163/123. WILL REASSESS IN 30 MINS.
--- NOTE | 2019-02-11 14:49 | NUR ---
50 ML CONTRAST PUSHED VIA GT BY RN FOR XRAY CONFIRMATION OF GTUBE PLACEMENT.
--- NOTE | 2019-02-11 15:15 | NUR ---
BP IMPROVED TO 157/48. DR. WEBBER MADE AWARE.
--- NOTE | 2019-02-11 15:30 | NUR ---
GRANDSON STATES "SHE IS ACTING LIKE SHE IS IN PAIN. HER FACE IS RED AND SHE LOOKS LIKE SHE'S CRYING." DR. WEBBER MADE AWARE. WILL SEND HOME WITH RX FOR Arthena.
[2019-02-11 15:40] VITALS: BP 157/48
--- NOTE | 2019-02-11 15:40 | NUR ---
Patient discharged with v/s stable. Written and verbal after care instructions given and explained to daughter and grandson. Wheel Chair Assisted to car by caregiver. All questions addressed prior to discharge. ID band removed. Patient advised to follow up with PMD. Rx of liquid children's Motrin given. Patient educated on indication of medication including possible reaction and side effects. Opportunity to ask questions provided and answered.
== END 2019-02-11 15:40 | disposition home or self-care (01) ==
LOC: MED 11:31
DX: K94.23 Gastrostomy malfunction (principal); I25.2 Old myocardial infarction; J44.9 Chronic obstructive pulmonary disease, unspecified; E11.9 Type 2 diabetes mellitus without complications; K21.9 Gastro-esophageal reflux disease without esophagitis; I10 Essential (primary) hypertension; F03.90 Unspecified dementia, unspecified severity, without behavioral disturbance, psychotic disturbance, mood disturbance, and anxiety; Z86.69 Personal history of other diseases of the nervous system and sense organs; Z86.73 Personal history of transient ischemic attack (TIA), and cerebral infarction without residual deficits; Z98.890 Other specified postprocedural states; Z79.899 Other long term (current) drug therapy
CPT/HCPCS: 43762; 74241; 81002; 96372; 99284; Q0092; 99283

== ENCOUNTER 2019-08-05 14:10 | Inpatient (IN) | payer OTHER, SELFPAY ==
[~2019-08-05] VITALS: Ht 144.8 cm; Wt 61.2 kg
[~2019-08-05 14:10] MED LIST changes: -CLIN150C1 PO; -CLIN300C2 PO; +FURO-572 PO; -GAROS OP; -LACT1.4C PO; -LEVO750T2 PO; -LISI2.5T12 GT; +ROB1 GT; +VALS160T2 PO
[2019-08-05] MEDS ORDERED: NACL 0.9% 1,000 ML IV SCH ×2 (14:11→16:31)
--- NOTE | 2019-08-05 14:12 | NUR ---
BIBA TAKEN TO BED 9
[2019-08-05 14:15] VITALS: BP 122/87
[2019-08-05] MEDS ORDERED: cefTRIAXone 1,000 MG in DEXT 5% MINI-BAG PLUS 50 ML IV ONE (14:15)
[2019-08-05] MEDS ORDERED: cefTRIAXone 1,000 MG VIAL ONE (14:19)
--- NOTE | 2019-08-05 14:55 | NUR ---
84 Y/O FEMALE BIBA FROM HOME, FAMILY REPORTED PT IS SOB. PT IS TACHYPNEIC, RESP SHALLOW AND LABORED. CHEST RISE AND FALL SYMMETRICAL. AFEBRILE. LUNG SOUNDS DIMINISHED IN BILAT BASES. BOWEL SOUNDS NORMOACTIVE. SKIN IS COOL AND DRY. PT BASELINE GCS:9, CURRENT GCS: 9. BUE CONTRACTED. PT IS BEDBOUND. PERRLA, 3MM.
--- NOTE | 2019-08-05 15:15 | NUR ---
PT RESP TACHY AND LABORED, SP02: 98% NC 2L. ERMD NOTIFIED
[2019-08-05] MEDS ORDERED: ENALAPRILAT 2.5 MG/2 ML VIAL IVP ONE (15:40)
--- NOTE | 2019-08-05 15:40 | NUR ---
COVID SWAB GIVEN TO PATRICIA IN LAB
[2019-08-05 15:49] LABS: APPEARANCE,URINE CLOUDY (CLEAR); BILIRUBIN,URINE NEGATIVE (NEGATIVE); BLOOD, URINE 3+ (NEGATIVE); COLOR,URINE YELLOW (YELLOW); UGLUCOSE NEGATIVE (NEGATIVE)
[2019-08-05 15:50] LABS: LEUKOCYTE ESTERASE ,URINE 3+ (NEGATIVE); NITRITE, URINE NEGATIVE (NEGATIVE)
--- NOTE | 2019-08-05 15:50 | NUR ---
BLOOD PRESSURE 84/35, ERMD NOTIFIED
[2019-08-05 15:58] LABS: RBC,URINE TOO NUMEROUS TO COUN /HPF (0-5); WBC,URINE 80-100 /HPF (0-5)
--- NOTE | 2019-08-05 16:03 | NUR ---
SPOKE WITH PT GRANDSON, KARYN AT [phone]. INFORMED KARYN ABOUT GRANDMOTHERS CONDITION AND RECEIVED VERBAL CONSENT TO PERFORM PICC LINE INSERTION.
[2019-08-05] MEDS ORDERED: INTUBATION KIT MC ONE (16:26)
[2019-08-05] MEDS ORDERED: SUCCINYLCHOLINE CHLORIDE 200 MG/10 ML VIAL IVP ONE (16:30)
[2019-08-05] MEDS ORDERED: PROPOFOL 1000 MG/100 ML PREMIX 100 ML IV ONE (16:30)
[2019-08-05] MEDS ORDERED: ETOMIDATE 20 MG/10 ML VIAL IVP ONE (16:30)
[2019-08-05] MEDS ORDERED: MORPHINE SULFATE 2 MG/ML SYR IVP PRN (16:35)
[2019-08-05] MEDS ORDERED: ACETAMINOPHEN 325 MG TAB PO PRN (16:35)
[2019-08-05] MEDS ORDERED: ALBUTEROL HFA MDI 90 MCG/ACTUATION 8 GM INH PRN (16:35)
[2019-08-05] MEDS ORDERED: DOCUSATE SODIUM 100 MG GELCAP PO PRN (16:35)
[2019-08-05] MEDS ORDERED: ONDANSETRON 4 MG/2 ML VIAL IM/IVP PRN (16:35)
[2019-08-05] MEDS ORDERED: HYDROcodone/APAP 5/325 MG 1 TAB TAB PO PRN (16:35)
--- NOTE | 2019-08-05 17:00 | NUR ---
CENTRAL LINE BEING PLACED
--- NOTE | 2019-08-05 17:30 | NUR ---
CENTRAL LINE PLACED. PT TOLERATED PROCEDURE WELL. VSS. RESP EVEN AND LABORED, PT TACHYPNEIC
--- NOTE | 2019-08-05 18:00 | NUR ---
INTUBATION PERFORMED. TUBE: 7.5. TUBE MEASURED AT LIP: 22. PT TOLERATED PROCEDURE WELL.
[2019-08-05 18:01] LABS: HEMATOCRIT 31.6 % (36-48); HEMOGLOBIN 10.1 g/dL (12.0-16.0); MEAN CORPUSCULAR HEMOGLOBIN 30 pg (27-31); MEAN CORPUSCULAR HGB CONC 32 g/dL (33-37); MEAN CORPUSCULAR VOLUME 95.2 fL (80-94); PLATELET COUNT (AUTO) 413 K/uL (140-450); RED BLOOD CELL COUNT(AUTO) 3.31 MIL/uL (4.20-5.40); RED CELL DISTRIBUTION WIDTH 14.6 % (11.6-13.7)
[2019-08-05 18:07] LABS: WHITE BLOOD COUNT (AUTO) 29.3 K/uL (4.8-10.8)
--- NOTE | 2019-08-05 18:09 | NUR ---
CRITICAL LAB VALUE CALLED FROM LAB. WBC COUNT 29.3, DR VIERA MADE AWARE
[2019-08-05] MEDS ORDERED: INSULIN LISPRO SLIDING SCALE 100 UNITS/ML VIAL SUBQ PRN (18:15)
[2019-08-05] MEDS ORDERED: DEXTROSE 50% 50 ML SYR IVP PRN (18:15)
[2019-08-05 18:19] LABS: PROTHROMBIN TIME 13.3 secs (10.8-13.4)
[2019-08-05 18:20] LABS: ALBUMIN 2.4 g/dL (3.4-5.0); ANION GAP 30.3 (8-16); ASPARTATE AMINOTRANSFERASE 677 U/L (15-37); CARBON DIOXIDE 13.5 mmol/L (21-32); CHLORIDE 87 mmol/L (98-107); CREATININE 3.5 mg/dL (0.6-1.3); GLUCOSE 99 mg/dL (74-106); SODIUM SERUM 124 mmol/L (136-145); TOTAL BILIRUBIN 0.6 mg/dL (0.0-1.0)
[2019-08-05 18:24] LABS: POTASSIUM 6.8 mmol/L (3.5-5.1)
[2019-08-05 18:25] LABS: UREA NITROGEN, BLOOD 85 mg/dL (7-18)
--- NOTE | 2019-08-05 18:26 | NUR ---
POTASSIUM 6.8, BUN 85, CREATININE 3.5. DR VIERA MADE AWARE
[2019-08-05 18:30] LABS: BASOPHILS % (MANUAL) 0 % (0-2); EOSINOPHILS % (MANUAL) 0 % (0-4); LYMPHOCYTES % (MANUAL) 7 % (20-46); MONOCYTES % (MANUAL) 6 % (5-12)
[2019-08-05] MEDS ORDERED: INSULIN REGULAR, HUMAN 100 UNIT/ML VIAL SUBQ ONE (18:30)
[2019-08-05] MEDS ORDERED: SODIUM POLYSTYRENE 15 GM/60 ML UDBTL NG ONE (18:30)
[2019-08-05] MEDS ORDERED: DEXTROSE 50% 50 ML SYR IVP ONE (18:30)
[2019-08-05] MEDS ORDERED: CALCIUM CHLORIDE 10% 1,000 MG in NACL 0.9% 100 ML IV ONE (18:30)
--- NOTE | 2019-08-05 18:30 | NUR ---
RASS SCALE: -3. VSS. BED IN LOWEST POSITION, SIDE RAILS RAISED.
--- NOTE | 2019-08-05 18:31 | NUR ---
LACTIC ACID 13.5. DR VIERA MADE AWARE
[2019-08-05] MEDS ORDERED: NACL 0.9% 1,000 ML IV ONE (18:35)
[2019-08-05 18:48] LABS: MAGNESIUM 3.6 mg/dL (1.8-2.4); PHOSPHORUS 7.9 mg/dL (2.5-4.9); THYROID STIMULATING HORMONE 4.01 uIU/mL (0.34-3.74)
[2019-08-05] MEDS ORDERED: CALCIUM CHLORIDE 10% 100 MG/ML SYR IVP ONE (18:52)
--- NOTE | 2019-08-05 19:01 | NUR ---
PT WAS INTUBATED ROUGHLY 1800 VENT WAS PLACED ON PT W/ SETTINGS OF ACVC VT 350 PEEP 5 f 35 TUBE IS 7.5 AND SECURED AT THE TEETH PT SAT 100%
[2019-08-05 19:07] VITALS: BP 111/67
[2019-08-05] MEDS ORDERED: PIPERACILLIN/TAZOBACTAM 2.25 GM in DEXTROSE 5% 50 ML IV SCH (19:07)
--- NOTE | 2019-08-05 19:26 | NUR ---
Dr. Hussein examining patient.
--- NOTE | 2019-08-05 19:31 | NUR ---
VENT CHANGES PRESSURE CONTROL 35 RR 28 PEEP 8 ITIME 0.70 FIO2 100%
[2019-08-05] MEDS ORDERED: SODIUM BICARBONATE 8.4% 100 MEQ in NACL 0.9% 1,000 ML IV SCH (19:45)
[2019-08-05] MEDS ORDERED: SODIUM BICARBONATE 8.4% 150 MEQ in DEXTROSE 5% 1,000 ML IV SCH (19:50)
--- NOTE | 2019-08-05 19:50 | NUR ---
MONITOR READS HR OF 39. ORDER FOR ATROPINE RECEIVED.
--- NOTE | 2019-08-05 19:56 | NUR ---
ATROPINE NOT EFFECTIVE. PT ASYSTOLE. CPR/ACLS PROTOCOL INITATED. SEE CODE SHEET FOR MEDICATIONS/TREATMENTS DURING CODE.
[2019-08-05] MEDS ORDERED: VANCOMYCIN PER PHARMACY MC PRN (20:05)
[2019-08-05] MEDS ORDERED: NOREPINEPHRINE 4 MG/4 ML VIAL IV ONE (20:11)
--- NOTE | 2019-08-05 20:30 | NUR ---
PATIENTS VENT SETTINGS CHANGED TO PRESSURE CONTROL OF 35 RR 28 ITIME 0.70 PEEP 8 FIO2 100%
--- NOTE | 2019-08-05 20:55 | NUR ---
PATIENT TRANSFERRED TO ICU 2. RECEIVED REPORT FROM ER NURSE. ETT TO VENT, AC PC FIO2 100% RATE 28 PEEP 8. LUNG SOUNDS DIMINISHED. BREATHING EVEN AND UNLABORED. S1S2, HR ELEVATED, ST ON MONITOR. RIGHT IJ IN PLACE, INFUSING NS BOLUS, LEVOPHED 4MG/250ML @ 5 MCG/MIN, PROPOFOL AT 5 MCG/KG/MIN, DRY WEIGHT 61.235 KG, RASS -5 PATIENT IS UNAROUSEABLE. BP 112/63. RIGHT WRIST 22G, SALINE LOCKED. ABDOMEN IS DISTENDED, HARD/FIRM, NO BOWEL SOUNDS HEARD. GTUBE IN PLACE, LEAKING SMALL AMOUNT BLACK SECRETIONS/FLUIDS. PT INCONTINENT. SKIN IS INTACT, TEMP 96.2. UPPER EXTREMITIES ARE CONTRACTED. FLACC 0
[2019-08-05 21:00] VITALS: BP 88/35
[2019-08-05] MEDS ORDERED: BLOOD GLUCOSE MONITORING 1 DEV DEV FS SCH (21:00)
--- NOTE | 2019-08-05 21:00 | NUR ---
PT ADMITTED TO ICU BED #2. PT TRANSFERRED VIA GURNEY WITH JOLIE REYNA EMT. PT STABLE CONDITION. REPORT GIVEN TO SHAKA PRINCE. PT CARE TRANSFERRED AT THIS TIME.
[2019-08-05] MEDS ORDERED: ATROPINE 1 MG/10 ML SYR IVP ONE (21:05)
--- NOTE | 2019-08-05 21:05 | NUR ---
NOTED HEART RATE GOING DOWN; CODE BLUE CALLED; PT ON MODIFIED CODE/ACLS DRUGS/VASOPRESSORS; PT ALREADY ON LEVOPHED DRIP.
--- NOTE | 2019-08-05 21:15 | NUR ---
PULSE CHECK AT CAROTID AND FEMORAL, RN CONFIRMED PULSES FELT-THREADY. DOUBLE CHECKED WITH DOPPLER AND SECOND RN BUT CANNOT CONFIRM. ER MD ASSESSED FOR PULSES, USED ULTRASOUND AND AUSCULTATED. NO PULSES FELT OR HEARD. MONITOR SHOWS ASYSTOLE. CALLED TIME OF 2123.
--- NOTE | 2019-08-05 21:24 | NUR ---
PT ;PRONOUNCED BY DR CROSS; DR URIBE AND LIZBETH ALSO IN THE UNIT
--- NOTE | 2019-08-05 21:30 | NUR ---
PHONE CALL FROM DR URIBE; PHYSICIAN SAID HE ALREADY SPOKE WITH PTS GRANDSON KARYN BENITO RE;PT
--- NOTE | 2019-08-05 21:50 | NUR ---
PHONE CALL TO KARYN BENITO ([phone]); PTS GRANDSON. HE SAID THEY HAVE NOT DECIDED YET THE MORTUARY; HE WILL GIVE US A CALL ONCE THE FAMILY HAS DECIDED.SURESH MATT AWARE
--- NOTE | 2019-08-05 21:55 | NUR ---
PHONE CALL TO [facility]; SPOKE WITH CASSANDRA ROJAS; QUESTIONS ANSWERED.CASSANDRA SAID THE COORDINATOR WILL CALL BACK.AWAITING CALL
--- NOTE | 2019-08-05 22:08 | NUR ---
PHONE CALL FROM ANAIS QUIROGA, [facility] COORDINATOR.QUESTIONS ANSWERED; BODY RELEASED REFERRAL NUMBER# [id number]
--- NOTE | 2019-08-05 22:41 | NUR ---
SPOKE WITH SIMON BEARD ([employer] GRINDER) PATIENT IS "NOT REPORTABLE AT THIS TIME. NO CASE NUMBER GIVEN, WHEN CERTIFICATE IS AVAILABLE AND IF PATIENT TESTS POSITIVE FOR COVID, THEY WILL REPORT BACK WITH A CASE NUMBER. FOR NOW, NO CASE NUMBER AND CONFIRMED OK TO RELEASE BODY. SB [employer] M[employer] GRINDER WILL FOLLOWUP WITH MORTUARY FOR CERTIFICATE AND RESULTS.
[2019-08-05] MEDS ORDERED: VANCOMYCIN 1,000 MG in DEXTROSE 5% 250 ML IV ONE (23:55)
[2019-08-06] MEDS ORDERED: PIPERACILLIN/TAZOBACTAM 2.25 GM in DEXTROSE 5% 50 ML IV SCH ×2
--- NOTE | 2019-08-06 00:10 | NUR ---
POST MORTEM CARE COMPLETE. IDENTIFIER TAGS APPLIED TO TOE AND BODY BAG. ID BAND REMOVED. BELONGINGS PLACED IN BELONGING BAG. WAITING FOR CALL BACK FROM PATIENTS GRAND DAUGHTER WITH [facility].
--- NOTE | 2019-08-06 01:42 | NUR ---
SPOKE WITH PATIENTS GRAND DAUGHTER BEBA. [facility] [place] [address] [place] [address]. WILL CONTACT MORTUARY FOR PICKUP. FAMILY WILL BE NOTIFIED WHEN PATIENT IS PICKED UP AND FAMILY WILL COME TO HYDROLOGY PROFESSOR BELONGINGS.
--- NOTE | 2019-08-06 02:24 | NUR ---
SPOKE WITH MR. PORRAS FROM [facility], NOTIFIED THAT PATIENTS COVID TEST IS STILL PENDING. CONFIRMED TO TREAT PATIENT POSITIVE. CONFIRMED PICKUP WILL BE 1.5 TO 2 HOURS FROM NOW.
--- NOTE | 2019-08-06 04:35 | NUR ---
MORTICIAN FROM [facility] HERE TO SELLING SPECIALIST BODY AND SIGN PAPERWORK. COPIES MADE. BELONGINGS STILL HERE IN BAG, WAITING FOR FAMILY TO SELLING SPECIALIST. FAMILY NOTIFIED THAT PATIENT HAS GONE TO MORTUARY.
--- NOTE | 2019-08-06 06:01 | NUR ---
DOCUMENTATION ERROR INITIAL VENT CHECK CURRENTLY CHARTED 1912 SHOULD BE ROUGHLY 1800 AFTER INTUBATION
--- NOTE | 2019-08-06 06:05 | NUR ---
PTS FAMILY HERE TO VOCATIONAL TEACHER BELONGINGS, SHIRT AND TWO PILLOWS GIVEN.
[2019-08-06 08:07] LABS: FOLIC ACID > 20.00 ng/mL (>3.0); TRANSFERRIN 188 mg/dL (149-313)
[2019-08-06] MEDS ORDERED: ZINC SULF 220 MG CAP PO SCH (09:00)
[2019-08-06] MEDS ORDERED: ENOXAPARIN 40 MG/0.4 ML SYR SUBQ SCH (09:00)
== END 2019-08-06 04:55 | disposition expired | DRG 871 ==
LOC: EEVIPCON 14:10 → MED 14:10 → MIC 16:31
PROVIDERS: ADMIT General Practice; ATTEND General Practice
PROC: 5A1935Z Respiratory Ventilation, Less than 24 Consecutive Hours (ICD-10-PCS; principal; 2019-08-05)
PROC: 0BH17EZ Insertion of Endotracheal Airway into Trachea, Via Natural or Artificial Opening (ICD-10-PCS; 2019-08-05)
PROC: 02HV33Z Insertion of Infusion Device into Superior Vena Cava, Percutaneous Approach (ICD-10-PCS; 2019-08-05)
PROC: B548ZZA Ultrasonography of Superior Vena Cava, Guidance (ICD-10-PCS; 2019-08-05)
DX: A41.9 Sepsis, unspecified organism (principal); J96.01 Acute respiratory failure with hypoxia; J18.9 Pneumonia, unspecified organism; R65.21 Severe sepsis with septic shock; N17.0 Acute kidney failure with tubular necrosis; E43 Unspecified severe protein-calorie malnutrition; J44.0 Chronic obstructive pulmonary disease with (acute) lower respiratory infection; N12 Tubulo-interstitial nephritis, not specified as acute or chronic; E87.1 Hypo-osmolality and hyponatremia; J98.11 Atelectasis; D68.9 Coagulation defect, unspecified; E11.9 Type 2 diabetes mellitus without complications; E87.5 Hyperkalemia; F03.90 Unspecified dementia, unspecified severity, without behavioral disturbance, psychotic disturbance, mood disturbance, and anxiety; I10 Essential (primary) hypertension; Z20.828 Contact with and (suspected) exposure to other viral communicable diseases; K21.9 Gastro-esophageal reflux disease without esophagitis; I46.9 Cardiac arrest, cause unspecified; D63.8 Anemia in other chronic diseases classified elsewhere; R13.10 Dysphagia, unspecified; R74.0 Nonspecific elevation of levels of transaminase and lactic acid dehydrogenase [LDH]; E02 Subclinical iodine-deficiency hypothyroidism; E83.39 Other disorders of phosphorus metabolism; E83.41 Hypermagnesemia; E78.5 Hyperlipidemia, unspecified; K59.09 Other constipation; G40.909 Epilepsy, unspecified, not intractable, without status epilepticus; M81.0 Age-related osteoporosis without current pathological fracture; Z86.73 Personal history of transient ischemic attack (TIA), and cerebral infarction without residual deficits; Z74.01 Bed confinement status; Z93.1 Gastrostomy status; I25.2 Old myocardial infarction; Z79.899 Other long term (current) drug therapy; Z85.9 Personal history of malignant neoplasm, unspecified; Z68.29 Body mass index [BMI] 29.0-29.9, adult
CPT/HCPCS: 36415; 36600; 71045; 74018; 80053; 81001; 82607; 82728; 82746; 82803; 83036; 83540; 83605; 83615; 83690; 83735; 83880; 84100; 84443; 84484; 85025; 85045; 85379; 85610; 85651; 85730; 86140; 87040; 87081; 87086; 87186; 87804; 93005; 99285; C1751; J0696; J1815; J2543; J2704; J3370; J3490; J7030; J7060; Q0092; U0003-CS